=== PATIENT | male | born 1995 | race Caucasian/White ===

== ENCOUNTER 2016-08-05 18:55 | Emergency (ER) | payer MEDICAID ==
[2016-08-05 19:38] VITALS: BP 122/72
--- NOTE | 2016-08-05 20:27 | EDM.PDOC ---
ED HPI GENERAL MEDICAL PROBLEM - General Chief Complaint: Fever Stated Complaint: HEAD CONGESTION,UPPER RESP SYMPTOMS Time Seen by Provider: 08/05/16 19:15 Source of Information: Reports: Patient History Limitations: Reports: No Limitations - History of Present Illness INITIAL COMMENTS - FREE TEXT/NARRATIVE: ear pain and cough for the past week. The ear pain is getting worse. 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 Pain Score (Numeric/FACES): 5 - Related Data Allergies Allergy/AdvReac Type Severity Reaction Status Date / Time No Known Allergies Allergy Verified 08/05/16 19:57 Home Meds: Home Meds PARoxetine HCl [Paroxetine HCl] 10 mg PO DAILY 12/14/13 [History] traZODone 50 mg PO BEDTIME 12/14/13 [History] QUEtiapine [SEROquel XR] 400 mg PO DAILY 08/05/16 [History] Past Medical History Psychiatric History: Reports: ADHD, Depression - Infectious Disease History Infectious Disease History: Reports: Chicken Pox - Past Surgical History HEENT Surgical History: Reports: Myringotomy w Tube(s) GI Surgical History: Reports: Appendectomy Social & Family History - Tobacco Use Smoking Status *Q: Never Smoker - Caffeine Use Caffeine Use: Reports: Soda - Recreational Drug Use Recreational Drug Use: No ED ROS ENT - Review of Systems Review Of Systems: See Below Constitutional: Reports: Fever, Weakness HEENT: Reports: Ear Pain Respiratory: Reports: Cough Cardiovascular: Reports: No Symptoms Endocrine: Reports: No Symptoms GI/Abdominal: Reports: No Symptoms : Reports: No Symptoms Musculoskeletal: Reports: No Symptoms Skin: Reports: No Symptoms Neurological: Reports: No Symptoms Psychiatric: Reports: No Symptoms Hematologic/Lymphatic: Reports: No Symptoms Immunologic: Reports: No Symptoms ED EXAM, ENT - Physical Exam Exam: See Below Exam Limited By: No Limitations General Appearance: Alert, WD/WN, No Apparent Distress Eye Exam: Bilateral Eye: Normal Inspection Ears: TM Bulging, TM Erythema, TM Fluid Nose: Normal Inspection, Normal Mucousa, No Blood Mouth/Throat: Normal Gums, Normal Lips, Normal Teeth, Tonsillar Swelling Head: Atraumatic, Normocephalic Neck: Normal Inspection, Supple, Non-Tender, Full Range of Motion Respiratory/Chest: No Respiratory Distress, Lungs Clear, Normal Breath Sounds, No Accessory Muscle Use, Chest Non-Tender, Other (cough present) Cardiovascular: Normal Peripheral Pulses, Regular Rate, Rhythm, No Edema, No Murmur Psychiatric: Normal Affect, Normal Mood Skin: Warm, Dry, Intact, Normal Color, No Rash Lymphatic: No Adenopathy Course - Vital Signs Last Recorded V/S: Last Vital Signs Temp 38.2 C H 08/05/16 19:37 Pulse 98 08/05/16 19:37 Resp 14 08/05/16 19:37 BP 122/72 08/05/16 19:37 Pulse Ox 94 L 08/05/16 19:37 Departure - Departure Time of Disposition: 20:36 Disposition: Home, Self-Care 01 Condition: Good Clinical Impression: Large tonsils, Cough Otitis media Qualifiers: Otitis media type: suppurative Chronicity: acute Laterality: bilateral Recurrence: not specified as recurrent Spontaneous tympanic membrane rupture: without spontaneous rupture Qualified Code(s): H66.003 - Acute suppurative otitis media without spontaneous rupture of ear drum, bilateral - Discharge Information Referrals: PCP,None [Primary Care Provider] - Forms: ED Department Discharge Care Plan Goals: Bilateral Ear Infection large Tonsils cough -start Zithromax 250mg; take 2 tabs today, then 1 tab daily for 4 days -may take over the counter Tylenol, Motrin, or cough syrup as needed -work slip for no work today and Sunday. Return to Clinic or ER if not improved or symptoms worsen. - Problem List & Annotations (1) Cough SNOMED Code(s): 62835353 Code(s): R05 - COUGH Status: Acute Priority: Low Current Visit: Yes (2) Large tonsils SNOMED Code(s): 866347310, 388354860 Code(s): J35.1 - HYPERTROPHY OF TONSILS Status: Acute Priority: Low Current Visit: Yes (3) Otitis media SNOMED Code(s): 32646963 Code(s): H66.90 - OTITIS MEDIA, UNSPECIFIED, UNSPECIFIED EAR Status: Acute Priority: High Current Visit: Yes Qualifiers: Otitis media type: suppurative Chronicity: acute Laterality: bilateral Recurrence: not specified as recurrent Spontaneous tympanic membrane rupture: without spontaneous rupture Qualified Code(s): H66.003 - Acute suppurative otitis media without spontaneous rupture of ear drum, bilateral - Assessment/Plan Plan: Bilateral Ear Infection large Tonsils cough -start Zithromax 250mg; take 2 tabs today, then 1 tab daily for 4 days -may take over the counter Tylenol, Motrin, or cough syrup as needed -work slip for no work today and Sunday. Return to Clinic or ER if not improved or symptoms worsen.
== END 2016-08-05 20:46 | disposition home or self-care (01) ==
LOC: JP.ED 18:55
DX: H66.003 Acute suppurative otitis media without spontaneous rupture of ear drum, bilateral (principal); J35.1 Hypertrophy of tonsils; R05 Cough; F32.9 Major depressive disorder, single episode, unspecified; Z79.899 Other long term (current) drug therapy; Z90.49 Acquired absence of other specified parts of digestive tract; Z96.22 Myringotomy tube(s) status
CPT/HCPCS: 99283

== ENCOUNTER 2017-01-06 02:42 | Emergency (ER) | payer MEDICAID ==
[2017-01-06 03:02] VITALS: BP 144/97
--- NOTE | 2017-01-06 05:28 | EDM.PDOCBH ---
<Germán Jmaa - Last Filed: 01/06/17 05:22> ED HPI GENERAL MEDICAL PROBLEM - General Chief Complaint: Behavioral/Psych Stated Complaint: EVAL Time Seen by Provider: 01/06/17 03:05 Source of Information: Reports: Patient, Police History Limitations: Reports: Uncooperative - History of Present Illness INITIAL COMMENTS - FREE TEXT/NARRATIVE: This patient was brought in by the police because of a suicidal threat. This patient who has a previous psych history apparently broke up with his girlfriend. His girlfriend was dissatisfied with him because apparently he wouldn't take responsibility for childcare or something like that. He's been drinking today he said 6 or 7 drinks and he was talking to his girlfriend on the phone and he said that he was going to kill himself and he has a bunch of guidance and said he had put a gun to his head. The police were called and they arrived the man reportedly had a pistol in his hand which he laid down prior to opening the door for the police. The patient says he was really planning to kill himself but he's not now. The nurse tells me that he has no friends or other support and talks only to his girlfriend. He has many guns in the house including a number of hand guns hunting rifles as well as an assault rifle. He' s been hospitalized multiple times for psychiatric problems as a juvenile. He wants tried to hang himself. The patient is not very cooperative in giving a history. He says he's not going to the hospital but he'll sign a safety contract denies pain Pain Score (Numeric/FACES): 0 - Related Data Allergies Allergy/AdvReac Type Severity Reaction Status Date / Time No Known Allergies Allergy Verified 08/05/16 19:57 Home Meds: Home Meds QUEtiapine [SEROquel XR] 400 mg PO DAILY 08/05/16 [History] Amphetamine/Dextroamphetamine [Adderall XR] 20 mg PO DAILY 01/06/17 [History] Sertraline HCl [Sertraline HCl] 100 mg PO DAILY 01/06/17 [History] Past Medical History HEENT History: Reports: Hard of Hearing, Otitis Media Neurological History: Reports: Concussion Psychiatric History: Reports: ADHD, Anxiety, Depression, Mood Swings, Psych Hospitalization(s), Suicide Attempt, Suicidal Ideation Other [facility]iatric History: [facility] in [place] for depression, in [place] ... all as a juvenile. - Infectious Disease History Infectious Disease History: Reports: Chicken Pox - Past Surgical History HEENT Surgical History: Reports: Myringotomy w Tube(s) GI Surgical History: Reports: Appendectomy Social & Family History - Tobacco Use Smoking Status *Q: Never Smoker - Caffeine Use Caffeine Use: Reports: Soda - Alcohol Use Days Per Week of Alcohol Use: 2 Number of Drinks Per Day: 10 Total Drinks Per Week: 20 Date of Last Drink: 01/06/17 - Recreational Drug Use Recreational Drug Use: No ED ROS GENERAL - Review of Systems Review Of Systems: Unable To Obtain (Patient really is cooperative with this) ED EXAM, BEHAVIORAL HEALTH - Physical Exam Exam: See Below Exam Limited By: No Limitations General Appearance: Other (This gentleman seems sleepy he'll answer a few questions in a soft voice which is difficult to hear and asked like he wants to go to sleep.) Eye Exam: Bilateral Eye: Normal Inspection Throat/Mouth: Normal Inspection Head: Atraumatic Neck: Normal Inspection Respiratory/Chest: Lungs Clear Cardiovascular: Regular Rate, Rhythm GI/Abdominal: Non-Tender Extremities: Normal Inspection Neurological: Other (Affect seems a little bit flat he seems like he might be mildly depressed. He's not angry but he also is not very cooperative in giving history cranial nerves appear to be grossly intact he moves all extremities normally. He's oriented to person place and time) Psychiatric: Depressed Mood Skin Exam: Warm (As above), Dry COURSE, BEHAVIORAL HEALTH COMP - Course Vital Signs: Last Vital Signs Temp 35.8 C 01/06/17 03:03 Pulse 98 01/06/17 03:03 Resp 20 01/06/17 03:03 BP 144/97 H 01/06/17 03:03 Pulse Ox 97 01/06/17 03:03 Orders, Labs, Meds: Laboratory Tests 01/06/17 01/06/17 01/06/17 Range/Units 04:00 04:00 04:00 WBC 5.7 (4.5-11.0) K/uL RBC 5.49 (4.30-5.90) M/uL Hgb 16.4 H (12.0-15.0) g/dL Hct 45.7 (40.0-54.0) % MCV 83 (80-98) fL MCH 30 (27-31) pg MCHC 36 (32-36) % Plt Count 293 (150-400) K/uL Neut % (Auto) 59 (36-66) % Lymph % (Auto) 31 (24-44) % [place] % (Auto) 8 H (2-6) % Eos % (Auto) 1 L (2-4) % Baso % (Auto) 1 (0-1) % Sodium 140 (140-148) mmol/L Potassium 3.6 (3.6-5.2) mmol/L Chloride 103 (100-108) mmol/L Carbon Dioxide 27 (21-32) mmol/L Anion Gap 9.9 (5.0-14.0) mmol/L BUN 9 (7-18) mg/dL Creatinine 1.1 (0.8-1.3) mg/dL Est Cr Clr Drug Dosing 94.25 mL/min Estimated GFR (MDRD) > 60 (>60) Glucose 104 (74-106) mg/dL Calcium 8.9 (8.5-10.1) mg/dL Total Bilirubin 0.4 (0.2-1.0) mg/dL AST 17 (15-37) U/L ALT 19 (12-78) U/L Alkaline Phosphatase 70 (46-116) U/L Total Protein 7.8 (6.4-8.2) g/dL Albumin 4.4 (3.4-5.0) g/dL Globulin 3.4 (2.3-3.5) g/dL Albumin/Globulin Ratio 1.3 (1.2-2.2) Salicylates 0.9 L (2.0-20.0) mg/dL Urine Opiates Screen (NEGATIVE) Ur Oxycodone Screen (NEGATIVE) Urine Methadone Screen (NEGATIVE) Ur Propoxyphene Screen (NEGATIVE) Acetaminophen 0.0 L (10.0-30.0) ug/mL Ur Barbiturates Screen (NEGATIVE) Ur Tricyclics Screen (NEGATIVE) Ur Phencyclidine Scrn (NEGATIVE) Ur Amphetamine Screen (NEGATIVE) U Methamphetamines Scrn (NEGATIVE) Urine MDMA Screen (NEGATIVE) U Benzodiazepines Scrn (NEGATIVE) U Cocaine Metab Screen (NEGATIVE) U Marijuana (THC) Screen (NEGATIVE) Ethyl Alcohol mg/dL 01/06/17 01/06/17 Range/Units 04:00 04:22 WBC (4.5-11.0) K/uL RBC (4.30-5.90) M/uL Hgb (12.0-15.0) g/dL Hct (40.0-54.0) % MCV (80-98) fL MCH (27-31) pg MCHC (32-36) % Plt Count (150-400) K/uL Neut % (Auto) (36-66) % Lymph % (Auto) (24-44) % [place] % (Auto) (2-6) % Eos % (Auto) (2-4) % Baso % (Auto) (0-1) % Sodium (140-148) mmol/L Potassium (3.6-5.2) mmol/L Chloride (100-108) mmol/L Carbon Dioxide (21-32) mmol/L Anion Gap (5.0-14.0) mmol/L BUN (7-18) mg/dL Creatinine (0.8-1.3) mg/dL Est Cr Clr Drug Dosing mL/min Estimated GFR (MDRD) (>60) Glucose (74-106) mg/dL Calcium (8.5-10.1) mg/dL Total Bilirubin (0.2-1.0) mg/dL AST (15-37) U/L ALT (12-78) U/L Alkaline Phosphatase (46-116) U/L Total Protein (6.4-8.2) g/dL Albumin (3.4-5.0) g/dL Globulin (2.3-3.5) g/dL Albumin/Globulin Ratio (1.2-2.2) Salicylates (2.0-20.0) mg/dL Urine Opiates Screen Negative (NEGATIVE) Ur Oxycodone Screen Negative (NEGATIVE) Urine Methadone Screen Negative (NEGATIVE) Ur Propoxyphene Screen Negative (NEGATIVE) Acetaminophen (10.0-30.0) ug/mL Ur Barbiturates Screen Negative (NEGATIVE) Ur Tricyclics Screen Negative (NEGATIVE) Ur Phencyclidine Scrn Negative (NEGATIVE) Ur Amphetamine Screen Positive H (NEGATIVE) U Methamphetamines Scrn Negative (NEGATIVE) Urine MDMA Screen Negative (NEGATIVE) U Benzodiazepines Scrn Negative (NEGATIVE) U Cocaine Metab Screen Negative (NEGATIVE) U Marijuana (THC) Screen Negative (NEGATIVE) Ethyl Alcohol 62 mg/dL Re-Assessment/Re-Exam: This patient is worrisome because of the combination of alcohol previous suicidal history as well as multiple guns in the house. Also he appears he has no support system. We have asked the crisis counselor to come and evaluate this patient. Departure - Departure Disposition: Home, Self-Care 01 Clinical Impression: Adjustment reaction with anxiety and depression - Discharge Information Referrals: PCP,None [Primary Care Provider] - Forms: ED Department Discharge Care Plan Goals: all guns will be removed from his home He leilani follow up as instructed. cont same meds. <Ute Mondragon - Last Filed: 01/06/17 08:07> Departure - Departure Time of Disposition: 08:05 Condition: Fair
== END 2017-01-06 08:50 | disposition home or self-care (01) ==
LOC: JP.ED 02:42
DX: F43.23 Adjustment disorder with mixed anxiety and depressed mood (principal); F32.9 Major depressive disorder, single episode, unspecified
CPT/HCPCS: 36415; 80053; 80305; 85025; 99285; G0480

== ENCOUNTER 2017-01-09 17:39 | Emergency (ER) | payer MEDICAID ==
--- NOTE | 2017-01-09 18:44 | EDM.PDOCBH ---
ED HPI GENERAL MEDICAL PROBLEM - General Chief Complaint: Behavioral/Psych Stated Complaint: EVAL Time Seen by Provider: 01/09/17 18:25 Source of Information: Reports: Patient, Old Records, Police History Limitations: Reports: Other (patient not completely honest with examiner ) - History of Present Illness INITIAL COMMENTS - FREE TEXT/NARRATIVE: 21 yo male here via police for suicidal ideation. Had reportedly texted his ex- girlfriend with this suicidal ideation. Had been here a couple days ago for the same and Crisis was consulted. At that time according to records all his guns were removed from his property. Crisis felt he was not at high risk of self harm and he was discarged to home from the ED. Was told to restrict his alcohol intake when here last and he states he has done this. Denies any attempts today at self-harm. Denies sending the texts to his girlfriend that the police reported was the ppt event that led to them bringing him here. Police went to the girlfriend's and verified that he did send this "suicide text ". 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) (none) - Related Data Allergies Allergy/AdvReac Type Severity Reaction Status Date / Time No Known Allergies Allergy Verified 01/09/17 17:55 Home Meds: Home Meds QUEtiapine [SEROquel XR] 400 mg PO DAILY 08/05/16 [History] Amphetamine/Dextroamphetamine [Adderall XR] 20 mg PO DAILY 01/06/17 [History] Sertraline HCl [Sertraline HCl] 100 mg PO DAILY 01/06/17 [History] Past Medical History HEENT History: Reports: Hard of Hearing, Otitis Media Neurological History: Reports: Concussion Psychiatric History: Reports: ADHD, Anxiety, Depression, Mood Swings, Psych Hospitalization(s), Suicide Attempt, Suicidal Ideation Other Psychiatric History: [facility] [place] [facility], in [place] ... all as a juvenile. - Infectious Disease History Infectious Disease History: Reports: Chicken Pox - Past Surgical History HEENT Surgical History: Reports: Myringotomy w Tube(s) GI Surgical History: Reports: Appendectomy Social & Family History - Tobacco Use Smoking Status *Q: Never Smoker - Caffeine Use Caffeine Use: Reports: Soda - Alcohol Use Days Per Week of Alcohol Use: 2 Number of Drinks Per Day: 10 Total Drinks Per Week: 20 - Recreational Drug Use Recreational Drug Use: No ED ROS GENERAL - Review of Systems Review Of Systems: See Below Constitutional: Reports: No Symptoms HEENT: Reports: No Symptoms Respiratory: Reports: No Symptoms Cardiovascular: Reports: No Symptoms GI/Abdominal: Reports: No Symptoms : Reports: No Symptoms Musculoskeletal: Reports: No Symptoms Skin: Reports: No Symptoms Neurological: Reports: No Symptoms Psychiatric: Reports: No Symptoms. Denies: Suicidal Ideation (denies now) ED EXAM, BEHAVIORAL HEALTH - Physical Exam Exam: See Below Exam Limited By: No Limitations General Appearance: Alert, WD/WN, No Apparent Distress Eye Exam: Bilateral Eye: Normal Inspection Ears: Normal External Exam, Normal Canal, Hearing Grossly Normal, Normal TMs Throat/Mouth: Normal Inspection, Normal Lips, Normal Teeth, Normal Oropharynx, Normal Voice, No Airway Compromise Head: Atraumatic, Normocephalic Neck: Normal Inspection, Supple, Non-Tender Respiratory/Chest: No Respiratory Distress, Lungs Clear, Normal Breath Sounds, No Accessory Muscle Use Cardiovascular: Regular Rate, Rhythm, No Edema GI/Abdominal: Normal Bowel Sounds, Soft, Non-Tender, No Distention Back Exam: Normal Inspection. No: CVA Tenderness (R), CVA Tenderness (L) Extremities: Normal Inspection, Normal Range of Motion, Non-Tender Neurological: Alert, Normal Mood/Affect, CN II-XII Intact, Normal Cognition, No Motor/Sensory Deficits, Oriented x 3 Psychiatric: Alert, Normal Affect, Normal Cognition, Normal Mood, Oriented Skin Exam: Warm, Dry, Intact, Normal color, No rash COURSE, BEHAVIORAL HEALTH COMP - Course Vital Signs: Last Vital Signs Temp 36.0 C 01/09/17 17:58 Pulse 97 01/09/17 17:58 Resp 16 01/09/17 17:58 BP 149/94 H 01/09/17 17:58 Pulse Ox 98 01/09/17 17:58 Orders, Labs, Meds: Laboratory Tests 01/09/17 01/09/17 01/09/17 Range/Units 18:27 18:35 18:35 TSH, Ultra Sensitive (0.358-3.740) uIU/mL Salicylates (2.0-20.0) mg/dL Urine Opiates Screen Negative (NEGATIVE) Ur Oxycodone Screen Negative (NEGATIVE) Urine Methadone Screen Negative (NEGATIVE) Ur Propoxyphene Screen Negative (NEGATIVE) Acetaminophen 0.0 L (10.0-30.0) ug/mL Ur Barbiturates Screen Negative (NEGATIVE) Ur Tricyclics Screen Negative (NEGATIVE) Ur Phencyclidine Scrn Negative (NEGATIVE) Ur Amphetamine Screen Positive H (NEGATIVE) U Methamphetamines Scrn Negative (NEGATIVE) Urine MDMA Screen Negative (NEGATIVE) U Benzodiazepines Scrn Negative (NEGATIVE) U Cocaine Metab Screen Negative (NEGATIVE) U Marijuana (THC) Screen Negative (NEGATIVE) Ethyl Alcohol < 3 mg/dL 01/09/17 01/09/17 Range/Units 18:35 20:00 TSH, Ultra Sensitive 1.873 (0.358-3.740) uIU/mL Salicylates 1.3 L (2.0-20.0) mg/dL Urine Opiates Screen (NEGATIVE) Ur Oxycodone Screen (NEGATIVE) Urine Methadone Screen (NEGATIVE) Ur Propoxyphene Screen (NEGATIVE) Acetaminophen (10.0-30.0) ug/mL Ur Barbiturates Screen (NEGATIVE) Ur Tricyclics Screen (NEGATIVE) Ur Phencyclidine Scrn (NEGATIVE) Ur Amphetamine Screen (NEGATIVE) U Methamphetamines Scrn (NEGATIVE) Urine MDMA Screen (NEGATIVE) U Benzodiazepines Scrn (NEGATIVE) U Cocaine Metab Screen (NEGATIVE) U Marijuana (THC) Screen (NEGATIVE) Ethyl Alcohol mg/dL Departure - Departure Time of Disposition: 20:46 Disposition: DC/Tfer to Psych Hosp/Unit 65 Condition: Good Clinical Impression: Suicidal thoughts - Discharge Information Referrals: Roge Zhu PA-C [Primary Care Provider] - Forms: ED Department Discharge
[2017-01-09 23:05] VITALS: BP 128/74
== END 2017-01-09 23:31 ==
LOC: JP.ED 17:39
DX: R45.851 Suicidal ideations (principal); F90.9 Attention-deficit hyperactivity disorder, unspecified type; F41.9 Anxiety disorder, unspecified; F32.9 Major depressive disorder, single episode, unspecified; Z79.899 Other long term (current) drug therapy
CPT/HCPCS: 36415; 80305; 84443; 99285; G0480

== ENCOUNTER 2018-05-24 00:46 | Emergency (ER) | payer MEDICAID ==
[2018-05-24 01:09] VITALS: BP 143/91
--- NOTE | 2018-05-24 01:17 | EDM.PDOC ---
ED HPI GENERAL MEDICAL PROBLEM - General Chief Complaint: ENT Problem Stated Complaint: TOOTH PAIN, TMJ Time Seen by Provider: 05/24/18 01:00 Source of Information: Reports: Patient, Old Records History Limitations: Reports: No Limitations - History of Present Illness INITIAL COMMENTS - FREE TEXT/NARRATIVE: 22 yo male here with dental pain. Has seen a dentist for this and is awaiting a date for extraction. Pain is getting worse over the past few weeks, hansel with lying or chewing. Took acetaminophen and ibuprofen with partial relief tonight. No fever or facial swelling. Pain is from the maxillary molars on the left. Onset: Gradual Duration: Week(s):, Getting Worse Location: Reports: Face (L side) Quality: Reports: Ache Severity: Moderate Improves with: Reports: Medication Worsens with: Reports: Other (time) Context: Reports: Other (see HPI) Associated Symptoms: Reports: No Other Symptoms. 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 - Related Data Allergies Allergy/AdvReac Type Severity Reaction Status Date / Time No Known Allergies Allergy Verified 01/09/17 17:55 Home Meds: Home Meds QUEtiapine [SEROquel XR] 400 mg PO DAILY 08/05/16 [History] Amphetamine/Dextroamphetamine [Adderall XR] 20 mg PO DAILY 01/06/17 [History] Sertraline HCl 100 mg PO DAILY 01/06/17 [History] Past Medical History HEENT History: Reports: Hard of Hearing, Otitis Media Neurological History: Reports: Concussion Psychiatric History: Reports: ADHD, Anxiety, Depression, Mood Swings, Psych Hospitalization(s), Suicide Attempt, Suicidal Ideation Other Psychiatric History: [facility] in [place] [facility] depression, in [place] ... all as a juvenile. - Infectious Disease History Infectious Disease History: Reports: Chicken Pox - Past Surgical History HEENT Surgical History: Reports: Myringotomy w Tube(s) GI Surgical History: Reports: Appendectomy Social & Family History - Caffeine Use Caffeine Use: Reports: Soda ED ROS ENT - Review of Systems Review Of Systems: See Below Constitutional: Reports: No Symptoms HEENT: Reports: Dental Pain Respiratory: Reports: No Symptoms Cardiovascular: Reports: No Symptoms GI/Abdominal: Reports: No Symptoms : Reports: No Symptoms Musculoskeletal: Reports: No Symptoms Skin: Reports: No Symptoms Neurological: Reports: No Symptoms ED EXAM, ENT - Physical Exam Exam: See Below Exam Limited By: No Limitations General Appearance: Alert, WD/WN, No Apparent Distress Eye Exam: Bilateral Eye: Normal Inspection Ears: Normal External Exam, Normal Canal, Hearing Grossly Normal, Normal TMs Nose: Normal Inspection, No Blood Mouth/Throat: Normal Inspection, Normal Lips, Normal Oropharynx Head: Atraumatic, Normocephalic Neck: Normal Inspection. No: Lymphadenopathy (R), Lymphadenopathy (L) Respiratory/Chest: No Respiratory Distress, Lungs Clear, Normal Breath Sounds, No Accessory Muscle Use Cardiovascular: Regular Rate, Rhythm, No Edema GI/Abdominal: Normal Bowel Sounds, Soft, Non-Tender, No Distention Back: Normal Inspection Extremities: Normal Inspection, Normal Range of Motion, Non-Tender, No Pedal Edema Neurological: Alert, Oriented, CN II-XII Intact, Normal Cognition, No Motor/ Sensory Deficits Psychiatric: Normal Affect, Normal Mood Skin: Warm, Dry, Intact, Normal Color, No Rash Lymphatic: No Adenopathy Course - Vital Signs Last Recorded V/S: Last Vital Signs Temp 35.4 C 05/24/18 01:04 Pulse 88 05/24/18 01:04 Resp 16 05/24/18 01:04 BP 143/91 H 05/24/18 01:04 Pulse Ox 96 05/24/18 01:04 Departure - Departure Time of Disposition: 01:25 Disposition: Home, Self-Care 01 Condition: Good Clinical Impression: Tooth ache - Discharge Information *PRESCRIPTION DRUG MONITORING PROGRAM REVIEWED*: No *COPY OF PRESCRIPTION DRUG MONITORING REPORT IN PATIENT MONA: No Referrals: PCP,None [Primary Care Provider] - Additional Instructions: Substitute Sanford for the acetaminophen if you need extra pain relief. Take Penicillin as directed. Follow up with your dentist regarding your planned dental work. See your family doctor if more care is needed before your dentist does the job.
== END 2018-05-24 01:28 | disposition home or self-care (01) ==
LOC: JP.ED 00:46
DX: K08.89 Other specified disorders of teeth and supporting structures (principal); Z79.899 Other long term (current) drug therapy
CPT/HCPCS: 99282; 99283

== ENCOUNTER 2022-05-06 17:27 | Emergency (ER) | payer MEDICAID ==
[2022-05-06 17:44] VITALS: BP 140/88; PULSE 80
[2022-05-06 18:52] LABS: ESTIMATED GFR 84 mL/min (>60)
[2022-05-06 18:56] LABS: CORONAVIRUS COVID-19 NAA NEGATIVE (NEGATIVE)
[2022-05-06] MEDS ORDERED: LORazepam 2 MG/ML SDV IM STA (19:24)
[2022-05-06] MEDS ORDERED: Haloperidol Lactate 5 MG/ML SDV IM STA (19:24)
[2022-05-06] MEDS ORDERED: diphenhydrAMINE 50 MG/ML SDV IM STA (19:24)
== END 2022-05-06 22:11 | disposition home or self-care (01) ==
LOC: JP.ED 17:27
DX: F32.A Depression, unspecified (principal); F19.10 Other psychoactive substance abuse, uncomplicated; Z79.899 Other long term (current) drug therapy; Z20.822 Contact with and (suspected) exposure to COVID-19
CPT/HCPCS: 0241U; 36415; 80053; 80143; 80179; 80305; 80307; 85025; 99285; 99284

== ENCOUNTER 2022-07-11 13:39 | Emergency (ER) | payer MEDICAID ==
[2022-07-11 14:32] LABS: BASOPHILS ABSOLUTE AUTO 0.06 K/uL (0.00-0.10); BASOPHILS PERCENT AUTO 1.1 % (0.1-1.3); EOSINOPHILS ABSOLUTE AUTO 0.13 K/uL (0.00-0.40); EOSINOPHILS PERCENT AUTO 2.5 % (0.0-5.4); HEMATOCRIT 43.1 % (38.4-49.7); HEMOGLOBIN 14.7 g/dL (12.9-16.9); IMMATURE GRAN PERCENT AUTO 0.4 % (0.0-0.7); LYMPHOCYTES PERCENT AUTO 26.8 % (11.4-47.7); MEAN CORPUSCULAR HEMOGLOBIN 29.9 pg (31.6-35.5); MEAN CORPUSCULAR HGB CONC 34.1 g/dL (31.6-35.5); MEAN CORPUSCULAR VOLUME 87.8 fL (81.4-99.0); MONOCYTES ABSOLUTE AUTO 0.52 K/uL (0.20-0.90); MONOCYTES PERCENT AUTO 9.9 % (3.3-12.6); NEUTROPHILS PERCENT AUTO 59.3 % (40.0-78.1); PLATELET COUNT,PLT 267 K/uL (130-375); RED BLOOD CELL COUNT 4.91 M/uL (4.14-5.76); WHITE BLOOD CELL COUNT,WBC 5.2 K/uL (3.2-11.0)
[2022-07-11 14:33] LABS: IMMATURE GRAN ABSOLUTE AUTO 0.02 K/uL (0.00-0.23)
[2022-07-11 14:55] LABS: A/G RATIO 1.1 (1.2-2.2); ALANINE AMINOTRANSFERASE,ALT 25 U/L (12-78); ALBUMIN 3.7 g/dL (3.4-5.0); ALKALINE PHOSPHATASE 76 U/L (46-116); ASPARTATE AMNIOTRANSFERASE,AST 17 U/L (15-37); BILIRUBIN TOTAL 0.3 mg/dL (0.2-1.0); BLOOD UREA NITROGEN,BUN 18 mg/dL (7-18); CALCIUM 8.5 mg/dL (8.5-10.1); CARBON DIOXIDE,CO2 28 mmol/L (21-32); CHLORIDE,CL 104 mmol/L (100-108); EST CRCL DRUG DOSING (CG) 99.24 mL/min; ESTIMATED GFR 105 mL/min (>60); GLUCOSE RANDOM 97 mg/dL (74-106); POTASSIUM,K 3.9 mmol/L (3.6-5.2); SODIUM,NA 139 mmol/L (140-148)
[2022-07-11 14:56] LABS: ANION GAP 10.9 mmol/L (5.0-14.0)
[2022-07-11 15:13] VITALS: BP 113/58; PULSE 74
== END 2022-07-11 15:25 | disposition home or self-care (01) ==
LOC: JP.ED 13:39
DX: R00.2 Palpitations (principal)
CPT/HCPCS: 36415; 80053; 84484; 85025; 99284

== ENCOUNTER 2023-08-27 11:10 | Emergency (ER) | payer OTHER ==
[2023-08-27 11:30] VITALS: BP 117/72; PULSE 69
== END 2023-08-27 13:01 | disposition home or self-care (01) ==
LOC: JP.ED 11:10
DX: S62.522A Displaced fracture of distal phalanx of left thumb, initial encounter for closed fracture (principal); W22.8XXA Striking against or struck by other objects, initial encounter; Y93.89 Activity, other specified
CPT/HCPCS: 29125; 73130-26-LT; 73130-LT; 99283-25